=== PATIENT | male | born 1945 | race Caucasian/White ===

== ENCOUNTER 2020-04-21 12:17 | Day surgery (SDC) | payer OTHER ==
[~2020-04-21] VITALS: Ht 170.2 cm; Wt 93.6 kg
[~2020-04-21 12:17] MED LIST: ASACOL HD800 MG PO; ASCO500 PO; ASPI81EC PO; Amaryl4 MG PO; Apriso0.375 GM PO; CIPR500 PO; CYAN100 PO; CYAN500 PO; CYCL10 PO; Cinnamon3.7 ML PO; Cinnamon500 MG; DICMIS50EC PO; DICMIS75EC; Depo-Testos200 MG/ML; ENOX40I SC; GLIM4 PO; GLIP10 PO; GLUCOSAMINE &1 EACH PO; Garlic1 EACH PO; HYDACE5 PO; HYDMOR2 PO; HYDMOR4 PO; Humalog100 UNIT/1; INSDET100; INSDET100 SUBQ; LISI10 PO; LISI5 PO; MESA250ER PO; MESA400ER PO; METF500 PO; METF500C PO; METR500 PO; Naprosyn500 MG PO; OXYACE5T PO; Omega 3 1,0001 EACH PO; PIOG45 PO; PRED20 PO; PROM25 PO; Prinivil5 MG PO; RED YEAST RIC1000 GM PO; SITA100T2 PO; Super B Comple150 MG PO; TAMS.4ER PO; TESTOSTERONE INJ; TOUJEO SOL300 UNIT/2 SC; ZOLP10 PO; ZOLP5 PO; Zofran Odt4 MG SL; [UNRECOGNIZED DRUG - OTHER]; [UNRECOGNIZED DRUG - REMARK]
[2020-04-21] MEDS ORDERED: NOVOLIN R100 UNIT/2 SC (13:56)
--- NOTE | 2020-04-21 15:59 | NUR ---
04/21/20 1559 Austin Ruvalcaba S THREE IV ATTEMPS IN LEFT HAND AND BOTH WOULD NOT THREAD. IV STARTED IN LEFT FOREARM AND PATIENT TOLERATED WELL.
== END 2020-04-21 15:23 | disposition home or self-care (01) ==
LOC: ORSCSDS 12:17
PROVIDERS: Orthopaedic Surgery
PROC: 01N50ZZ Release Median Nerve, Open Approach (ICD-10-PCS; principal; 2020-04-21 13:45)
DX: G56.01 Carpal tunnel syndrome, right upper limb (principal); I10 Essential (primary) hypertension; E11.9 Type 2 diabetes mellitus without complications; Z79.899 Other long term (current) drug therapy; Z79.84 Long term (current) use of oral hypoglycemic drugs
CPT/HCPCS: 82947; J0690; J2250; J7120

== ENCOUNTER 2020-09-08 07:15 | Day surgery (SDC) | payer OTHER ==
[~2020-09-08] VITALS: Ht 170.2 cm; Wt 93.4 kg
[~2020-09-08 07:15] MED LIST changes: +CANASA1000 MG PO; +FISH OIL 1,2001 EAC7 PO; +GLUCOSAMINE-CH1 EAC7 PO; +MAGNESIUM CITR100 M1 PO; +NOVOLIN N100 UNIT/2; +NOVOLIN R100 UNIT/2 SC; +PIOG30 PO; +Prinivil10 MG PO; +VITAMIN D325 MC3 PO; +[UNRECOGNIZED DRUG - OTHER]
--- NOTE | 2020-09-08 08:36 | NUR ---
09/08/20 0836 Todd Anthony BLOCK COMPLETED BY DR. UGALDE PRIOR TO SURGERY START.
== END 2020-09-08 09:35 | disposition home or self-care (01) ==
LOC: ORSCSDS 07:15
PROVIDERS: Orthopaedic Surgery
PROC: 01N50ZZ Release Median Nerve, Open Approach (ICD-10-PCS; principal; 2020-09-08 08:30)
DX: G56.02 Carpal tunnel syndrome, left upper limb (principal); I10 Essential (primary) hypertension; E11.9 Type 2 diabetes mellitus without complications; G47.33 Obstructive sleep apnea (adult) (pediatric); Z79.84 Long term (current) use of oral hypoglycemic drugs; Z79.899 Other long term (current) drug therapy
CPT/HCPCS: 82947; J0690; J1100; J1885; J2250; J3010; J7120

== ENCOUNTER 2023-03-31 09:05 | Emergency (ER) | payer OTHER ==
[~2023-03-31] VITALS: Ht 170.2 cm; Wt 90.7 kg
[~2023-03-31 09:05] MED LIST changes: +HUMALOG100 UNIT/1
[2023-03-31 09:51] VITALS: BP 125/86
[2023-04-07] MEDS ORDERED: NOVOLIN R100 UNIT/2 (14:39)
[2023-04-07] MEDS ORDERED: FARXIGA5 MG PO (14:41)
[2023-04-07] MEDS ORDERED: PIOG15 PO (14:42)
== END 2023-03-31 11:33 | disposition home or self-care (01) ==
LOC: ER 09:05
DX: T84.090A Other mechanical complication of internal right hip prosthesis, initial encounter (principal); I10 Essential (primary) hypertension; Z87.19 Personal history of other diseases of the digestive system; Z79.4 Long term (current) use of insulin; Z79.84 Long term (current) use of oral hypoglycemic drugs; Z79.899 Other long term (current) drug therapy; W01.0XXA Fall on same level from slipping, tripping and stumbling without subsequent striking against object, initial encounter
CPT/HCPCS: 73502; 99283-25

== ENCOUNTER 2023-04-19 08:12 | Inpatient (IN) | payer OTHER ==
[2023-04-19] VITALS (19 sets, daily range): BP systolic 120–177; BP diastolic 57–83
[~2023-04-19] VITALS: Wt 92.5 kg
[~2023-04-19 08:12] MED LIST changes: +FARXIGA5 MG PO; +NOVOLIN R100 UNIT/2
[2023-04-19] MEDS ORDERED: XYOSTED50 MG/0.1 INJ (09:51)
--- NOTE | 2023-04-19 10:04 | NUR ---
Patient to [facility] via wheelchair, states walking long distances is very painful. Patient is able to stand & ambulate independently. History, Chart, Medications and Allergies reviewed before start of procedure. Patient confirms NPO status and agrees with scheduled surgery. Pre-Op teaching done. Pt verbalizes understanding. Patient reports completing Chlorhexadine shower X2 prior to admission to hospital. Lungs clear T/O to Auscultation. Patient States Post-Procedure ride home has been arranged.
--- NOTE | 2023-04-19 17:00 | NUR ---
ARRIVAL PATIENT TO ROOM 214 VIA BED. AQUACEL TO RIGHT HIP, C/D/I. POLAR PACK IN PLACE. ABLE TO WIGGLE TOES, FULL SENSATION TO BLE. LUNGS CLEAR, VSS ON 4L O2, PLAN TO WEAN APPROPRIATE. ORIENTED TO ROOM & CALL LIGHT, IN REACH. PATIENT & SPOUSE AT BEDSIDE DENY ANY SOURCES OF IGNITION PRESENT AT THIS TIME. DISCUSSED FIRE SAFETY, BOTH VERBALIZE UNDERSTANDING.
[2023-04-20 03:40] VITALS: BP 115/74
[2023-04-20 04:26] LABS: BASOPHILS ABSOLUTE AUTO 0.01 K/mm3 (0.00-0.23); BASOPHILS PERCENT AUTO 0 % (0-2); EOSINOPHILS PERCENT AUTO 0 % (0-6); Hemoglobin 12.7 g/dL (13.5-17.5); IMMATURE GRAN ABSOLUTE AUTO 0.08 K/mm3 (0.00-0.10); IMMATURE GRAN PERCENT AUTO 1 % (0-1); LYMPHOCYTES ABSOLUTE AUTO 0.83 K/mm3 (0.84-5.20); LYMPHOCYTES PERCENT AUTO 6 % (21-46); MONOCYTES ABSOLUTE AUTO 1.02 K/mm3 (0.16-1.47); MONOCYTES PERCENT AUTO 7 % (4-13); Mean Corpuscular HGB 30.2 pg (26.0-34.0); Mean Corpuscular HGB Conc 33.4 g/dL (31.5-36.5); Mean Corpuscular Volume 90 fL (80-100); Mean Platelet Volume 10.2 fL (9.1-12.4); NEUTROPHILS ABSOLUTE AUTO 12.11 K/mm3 (1.96-9.15); NEUTROPHILS PERCENT AUTO 86 % (41-73); Platelet Count 206 K/mm3 (150-400); RDW Coefficient Variation 14.5 % (11.7-14.2); RDW Standard Deviation 48.1 fL (35.1-46.3); Red Blood Cell Count 4.21 M/mm3 (4.30-5.90); White Blood Cell Count 14.05 K/mm3 (4.00-11.30)
--- NOTE | 2023-04-20 04:36 | NUR ---
SHIFT SUMMARY NO ACUTE CHANGES. PT RESTED WELL. AQUACEL TO R HIP REMAINS CDI WITH POLAR PACK IN PLACE. ABDUCTOR PILLOW IN PLACE. 2 ROXICODONE/TORADOL/TYLENOL FOR PAIN. USING URINAL TO VOID. LYNN PO AND IV SL. USES CALL LIGHT APPROPRIATELY.
[2023-04-20 04:48] LABS: Bun/Creatinine Ratio 18.6 (12.0-20.0); Calcium, Blood 8.1 mg/dL (8.5-10.1); Creatinine, Blood 0.97 mg/dL (0.60-1.20); Potassium, Blood 4.5 mmol/L (3.5-5.5)
[2023-04-20 07:31] VITALS: BP 122/54
[2023-04-20] MEDS ORDERED: ASPI81CH PO (11:41)
[2023-04-20] MEDS ORDERED: Percocet 5-3251 EACH PO (11:45)
--- NOTE | 2023-04-20 13:51 | NUR ---
DISCHARGE: PACKET PRINTED AND PT EDUCATED. IV DC'D BY SANDRA CRYSTAL. PT GIVEN EXTRA AQUACEL DRESSINGS. A STAFF MEMBER FROM [employer] WAS IN PT ROOM AT ABOUT 1000, HE TOLD THIS RN AND PT THAT THEY NEEDED TO ORDER THE ABDUCTOR BRACE THAT DR. CARVALHO ORDERED. DR. HILTON MADE AWARE OF THIS, SEE HIP PRECAUTION ORDERS FOR HOME. PT REPORTED THAT SHE ALREADY RECEIVED SCRIPTS FOR ASPIRIN AND PAIN . PT LEFT UNIT VIA WHEELCHAIR AT ABOUT 1300 WITH SANDRA CRYSTAL
== END 2023-04-20 13:09 | disposition home or self-care (01) | DRG 468 ==
LOC: SURS 08:12 → PRE IP 10:00 → SURS 16:56
PROVIDERS: ADMIT Orthopaedic Surgery
PROC: 0SP909Z Removal of Liner from Right Hip Joint, Open Approach (ICD-10-PCS; 2023-04-19)
PROC: 0SPR0JZ Removal of Synthetic Substitute from Right Hip Joint, Femoral Surface, Open Approach (ICD-10-PCS; 2023-04-19)
PROC: 0SUR09Z Supplement Right Hip Joint, Femoral Surface with Liner, Open Approach (ICD-10-PCS; 2023-04-19)
PROC: 0SRR0JZ Replacement of Right Hip Joint, Femoral Surface with Synthetic Substitute, Open Approach (ICD-10-PCS; principal; 2023-04-19 10:00)
DX: T84.010A Broken internal right hip prosthesis, initial encounter (principal); M16.12 Unilateral primary osteoarthritis, left hip; F41.9 Anxiety disorder, unspecified; F32.A Depression, unspecified; E11.9 Type 2 diabetes mellitus without complications; I10 Essential (primary) hypertension; Z79.899 Other long term (current) drug therapy; Z79.4 Long term (current) use of insulin
CPT/HCPCS: 36415; 72170; 80048; 82947; 85025; 94760; 97110; 97116; 97162; 97166; 97530; 97535; A9270; C1776; J0171; J0690; J0735; J1100; J1815; J1885; J2250; J2405; J2704; J2795; J3010; J7120

== ENCOUNTER 2024-06-27 06:31 | Day surgery (SDC) | payer OTHER ==
[~2024-06-27 06:31] MED LIST changes: +ASPI81CH PO; +Lactated Ringer's 1,000 ML IV SCH; +OZEMPIC1 MG/0.72; +Percocet 5-3251 EACH PO; +Prozac20 MG; +TRAM50; +XYOSTED50 MG/0.1 INJ
--- NOTE | 2024-06-27 07:08 | NUR ---
PT REPORTS THAT HE HAD PASSES SOLID STOOL ON ARRIVAL. STATES HE TOOK THE COMPLETE PREP WHICH HE STARTED AT 3 PM YESTERDAY. PT WENT TO THE BATHROOM AGAIN AFTER HE ARRIVED AND THE TOILET BOWEL OF FULL OF THICK DARK BROWN STOOL AND SOME SOLIDS. DR. MCFADDEN NOTIFIED. PT CALLED AND INSTRUCTED TO FOLLOW UP WITH DR. HOLLAND OFFICE. PT PLEASANT AND UNDERSTANDING AMB OUT OF DEPARTMENT AND HOME WITH .
== END 2024-06-27 23:20 | disposition home or self-care (01) ==
LOC: ORSCMMR 06:31 → ORD 07:30 → ORSCMMR 23:20
DX: K51.90 Ulcerative colitis, unspecified, without complications (principal); Z53.9 Procedure and treatment not carried out, unspecified reason
CPT/HCPCS: J7120

== ENCOUNTER 2024-07-26 07:23 | Day surgery (SDC) | payer OTHER ==
[~2024-07-26] VITALS: Ht 170.2 cm; Wt 92.8 kg
[2024-07-26] VITALS (16 sets, daily range): BP systolic 110–159; BP diastolic 57–76
[~2024-07-26 07:23] MED LIST changes: +FARXIGA5 MG; -Lactated Ringer's 1,000 ML IV SCH; +NS 500 ML IV SCH
[2024-07-26] MEDS ORDERED: propofoL 40 ML IV ONE (07:49)
--- NOTE | 2024-07-26 07:56 | NUR ---
Ambulatory in Day Surgery WITH PERSONAL CANE. History, Chart, Medications and Allergies reviewed before start of procedure. Lungs clear T/O to Auscultation. Patient confirms NPO status and agrees with scheduled surgery. Pre-Op teaching done. Pt verbalizes understanding. Patient States Post-Procedure ride home has been arranged.
--- NOTE | 2024-07-26 08:45 | NUR ---
07/26/24 0845 Jose Juan Hoover CONFIRMED AND REVIEWED H&P, MEDCICATIONS, ALLERGIES, MEDICAL HISTORY, RESPIRATORY HISTORY, VITAL SIGNS, 3-LEAD EKG, CONSENTS, AND PHYSICIAN ORDERS. PATIENT CONFIRMS NPO STATUS AND AGREES WITH SCHEDULED PROCEDURE. MONITOR INTACT WITH CONTINUOUS PULSE OXIMETRY, CAPNOGRAPHY, 3-LEAD EKG, INTERMITTENT BP. SUPPLEMENTAL O2 TO BE TITRATED THROUGHOUT PROCEDURE TO MAINTAIN O2 SATURATION ABOVE 90%. PATIENT DETERMINED TO BE ASA APPROPRIATE FOR PROPOFOL SEDATION PRIOR TO START OF PROCEDURE BY DR. MCFADDEN.
--- NOTE | 2024-07-26 09:42 | NUR ---
Patient up to Ambulate independently. Gait steady. W/ ASSIST OF CANE. Discharge instructions reviewed with patient. Patient verbalizes understanding. Copy given to patient to take home. Discharged via wheelchair to private car for ride home.
== END 2024-07-26 09:40 | disposition home or self-care (01) ==
LOC: ORSCMMR 07:23 → ORD 08:30 → ORSCMMR 08:30
PROVIDERS: Internal Medicine Gastroenterology
PROC: 0DBK8ZX Excision of Ascending Colon, Via Natural or Artificial Opening Endoscopic, Diagnostic (ICD-10-PCS; principal; 2024-07-26 08:30)
PROC: 0DBM8ZX Excision of Descending Colon, Via Natural or Artificial Opening Endoscopic, Diagnostic (ICD-10-PCS; principal; 2024-07-26 08:30)
PROC: 0DBN8ZX Excision of Sigmoid Colon, Via Natural or Artificial Opening Endoscopic, Diagnostic (ICD-10-PCS; principal; 2024-07-26 08:30)
PROC: 0DBL8ZX Excision of Transverse Colon, Via Natural or Artificial Opening Endoscopic, Diagnostic (ICD-10-PCS; principal; 2024-07-26 08:30)
DX: K51.90 Ulcerative colitis, unspecified, without complications (principal); K63.5 Polyp of colon; E11.9 Type 2 diabetes mellitus without complications; Z79.85 Long-term (current) use of injectable non-insulin antidiabetic drugs; Z79.84 Long term (current) use of oral hypoglycemic drugs; Z79.4 Long term (current) use of insulin; Z79.899 Other long term (current) drug therapy
CPT/HCPCS: 82947; 88305; J2704; J7040